=== PATIENT | male | born 1995 | race American Indian/Alaskan Native ===

== ENCOUNTER 2017-08-06 13:07 | Emergency (ER) | payer OTHER, MEDICAID ==
[2017-08-06 14:05] VITALS: BP 120/69
[2017-08-06] MEDS ORDERED: FLEXERIL PO ONE (16:49)
[2017-08-06] MEDS ORDERED: MOTRIN PO ONE (16:49)
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
== END 2017-08-06 17:54 | disposition home or self-care (01) ==
LOC: ED 13:07
DX: S16.1XXA Strain of muscle, fascia and tendon at neck level, initial encounter (principal); M79.1 Myalgia; F31.9 Bipolar disorder, unspecified; F20.9 Schizophrenia, unspecified; V49.49XA Driver injured in collision with other motor vehicles in traffic accident, initial encounter; Y93.89 Activity, other specified; Y92.89 Other specified places as the place of occurrence of the external cause; Y99.8 Other external cause status
CPT/HCPCS: 72040; 99283